=== PATIENT | male | born 1950 | race Caucasian/White ===

== ENCOUNTER 2017-02-23 06:22 | Day surgery (SDC) | payer BC ==
[2017-02-16 14:02] LABS: BASOPHILS 0.3 %; BASOPHILS ABSOLUTE 0.02 10/3/uL (0.0-0.16); EOSINOPHILS 2.7 %; EOSINOPHILS ABSOLUTE 0.19 10/3/uL (0.0-0.53); HEMATOCRIT 47.9 % (40.0-51.0); HEMOGLOBIN 16.8 g/dL (13.6-17.8); IMMATURE GRANULOCYTES 0.4 %; IMMATURE GRANULOCYTES ABSOLUTE 0.03 10/3/uL (0.0-0.11); LYMPHOCYTES 26.2 %; LYMPHOCYTES ABSOLUTE 1.85 10/3/uL (0.67-4.30); MEAN CORPUS HGB CONC 35.1 g/dL (32.0-36.0); MEAN CORPUSCULAR HEMOGLOB 30.8 pg (26.0-34.0); MEAN CORPUSCULAR VOLUME 87.9 fL (80-100); MEAN PLATELET VOLUME 9.4 fL (9.2-13.0); MONOCYTES 12.5 %; MONOCYTES ABSOLUTE 0.88 10/3/uL (0.21-1.20); NEUTROPHILS 57.9 %; NEUTROPHILS ABSOLUTE 4.09 10/3/uL (2.02-8.40); PLATELET COUNT 156 10/3/uL (150-400); RED CELL COUNT 5.45 10/6/uL (4.7-6.1); WHITE BLOOD CELLS 7.1 10/3/uL (4.5-10.5)
[2017-02-16 14:03] LABS: MANUAL DIFF NO %
[2017-02-16 14:17] LABS: BUN (BLOOD UREA NITROGEN) 14 MG/DL (6-23); CALCIUM, SERUM 8.8 MG/DL (8.5-10.4); CHLORIDE, SERUM 105 MMOL/L (96-112); CO2 (CARBON DIOXIDE) 27 MMOL/L (24-34); CREATININE 1.32 MG/DL (0.70-1.30); GFR AFRICAN AMERICAN 65 ML/MIN (>=60); GFR NON AFRICAN AMERICAN 56 ML/MIN (>=60); GLUCOSE, SERUM 113 MG/DL (60-99); POTASSIUM, SERUM 4.6 MMOL/L (3.5-5.3); SODIUM, SERUM 137 MMOL/L (135-148)
--- NOTE | ~2017-02-23 | OP ---
Record Of Operation [facility] [address] [place]. [address] NAME: FELICITAS GOODMAN : 52 STATUS : REG [facility]#: [id number] AGE: 66 ADM/REG DATE : 02/23/17 MR#: [id number] REPORT SERV DATE: 02/23/17 DICTATED BY: EMILIE ORTIZ DATE: 02/23/17 REPORT STATUS : Draft TRANSCRIBED BY: MODL DATE: 02/23/17 DATE OF PROCEDURE: 02/23/2017 PREOPERATIVE DIAGNOSES: 1. Neurogenic bladder with chronic retention. 2. Bilateral hydronephrosis. ANESTHESIA: General. COMPLICATIONS: None. DRAINS: 1. Bilateral double-J stents. 2. Lainez catheter. PROCEDURE PERFORMED: 1. Cystoscopy, bilateral retrograde pyelogram. 2. Bilateral stent placement. 3. Cystogram. INDICATION: Mr. Glaser is a 66-year-old, who is on chronic self-catheterization for three or four years. He presented in followup. He is catheterizing five times a day without difficulty. His creatinine is 1.3. He remembered kidneys being "swollen" when he was first diagnosed with retention. A renal ultrasound in my office showed bilateral severe hydronephrosis and proximal hydroureter. He presents for cystoscopy, retrograde pyelograms to rule out correctable causes of hydronephrosis. It is unclear if this is residual dilation from his prior untreated retention. TECHNIQUE: Levaquin was given preop. He was brought to the operating room, general anesthesia was administered. Genitals and perineum prepped and draped in the lithotomy position in sterile fashion. Rigid cystoscopy was performed. The urethra was normal. No stricture seen. Prostate was nonobstructive. Mild follicular cystitis within the prostatic urethra. The bladder was inspected. It was severely distended and trabeculated/capacious. The right and left ureteral orifices were orthotopic in position. They were both effluxing slowly. No tumor or stone in the bladder. Left retrograde pyelogram was performed. There was severe left hydroureteronephrosis with tortuosity of the upper ureter. The hydroureter extended to the level of the intramural ureter, where there was a smooth tapered narrowing. No calcifications or filling defects in this area. In a similar fashion, right retrograde pyelogram was performed. There was moderate to severe right hydroureteronephrosis to the level of the ureterovesical junction again with tortuosity of the proximal ureter. No lesion or filling defect or stone was seen. Contrast drained sluggishly from the distal ureters into the bladder. I removed the cystoscope, placed a Lainez catheter, performed a cystogram with 300 mL of dilute contrast. There was no reflux. Record Of Operation [address] [place]. [address] NAME: FELICITAS GOODMAN : 52 STATUS : REG [facility] [place] PAT#: [id number] AGE: 66 ADM/REG DATE : 02/23/17 MR#: [id number] REPORT SERV DATE: 02/23/17 DICTATED BY: EMILIE ORTIZ DATE: 02/23/17 REPORT STATUS : Draft TRANSCRIBED BY: ZEHRA DATE: 02/23/17 The bladder was drained. Rigid cystoscopy was performed. 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 I placed a wire up to the left kidney. A 7-Kyrgyz stent was placed on the left with coil confirmed fluoroscopically in the renal pelvis and cystoscopically in the bladder. The dangling string was externalized. The cystoscope was readvanced, right ureteral stent was placed, 7-Kyrgyz again in a similar fashion. I placed a Lainez catheter to drain the bladder. The dangling strings were secured to the Lainez catheter with Tegaderm. Mr. Glaser will follow up in one week for a repeat creatinine and drain removal. If his creatinine is unchanged then I will merely have him continue with self-catheterization as he is doing. Surgical intervention for UVJ obstruction would be appropriate if creatinine markedly improves with stenting. FADI/ZEHRA Emilie Ortiz M.D. / [id number] CC: Winston Calero MD
[~2017-02-23 06:22] MED LIST: ASAB PO; CALCIUM; COQ-10200 MG PO; Calcium; EFFIENT10 PO; FISH-EPA1000 MG PO; GLUCCHONDR PO; LIPITOR40 PO; LOP25 PO; MAGNESIUM; MULTIVITAMI1 PO; Magnesium; NIACIN; POTASSIUM; PRAVAC PO; PRIN10 PO; Potassium; TIMOLOL MAL0.5 % OPH; ZESTRIL10 MG PO
== END 2017-02-23 19:11 | disposition home or self-care (01) ==
LOC: SDC 06:22
PROVIDERS: Urology
PROC: BT14ZZZ Fluoroscopy of Kidneys, Ureters and Bladder (ICD-10-PCS; 2017-02-23)
PROC: 0T788DZ Dilation of Bilateral Ureters with Intraluminal Device, Via Natural or Artificial Opening Endoscopic (ICD-10-PCS; principal; 2017-02-23 07:45)
DX: N31.9 Neuromuscular dysfunction of bladder, unspecified (principal); N13.30 Unspecified hydronephrosis; I10 Essential (primary) hypertension; I25.10 Atherosclerotic heart disease of native coronary artery without angina pectoris; E78.00 Pure hypercholesterolemia, unspecified; K21.9 Gastro-esophageal reflux disease without esophagitis; Z95.5 Presence of coronary angioplasty implant and graft; Z79.82 Long term (current) use of aspirin; Z79.899 Other long term (current) drug therapy; Z87.891 Personal history of nicotine dependence; Z96.1 Presence of intraocular lens; Z98.41 Cataract extraction status, right eye; Z98.42 Cataract extraction status, left eye; Z90.89 Acquired absence of other organs; Z98.890 Other specified postprocedural states
CPT/HCPCS: 36415; 74420; 80048; 85025; 93005; A9270-GY; C1758; C1769; C2617; J2250; J2405; J2550; J2710; J3010; Q9967